=== PATIENT | female | born 1960 ===

== ENCOUNTER 2025-04-19 12:31 | Emergency (ER) | payer MEDICARE, OTHER, SELFPAY ==
--- NOTE | ~2025-04-19 | CT_ITS ---
CLINICAL HISTORY: SOB, concern for clot CTA chest with 3-D postprocessing Comparison: None available Findings: Study quality is adequate for the diagnosis of pulmonary embolism. No pulmonary embolism. Heart size within normal limits. RV/LV ratio is normal. Mild calcified coronary artery disease. No aortic dissection or aneurysm. Mild calcified atherosclerotic disease. No lymphadenopathy. There is a mild amount of ground-glass/patchy consolidation in the lower lobes at the lung bases, greater on the right. No pneumothorax or pleural effusion. No acute osseous or soft tissue abnormality. No acute pathology in the imaged portion of the upper abdomen. The gallbladder is filled with stones. No definitive gallbladder wall thickening. No pericholecystic fluid. Moderate multifocal right renal scarring. Small hiatal hernia. Impression: No pulmonary embolism. Mild amount of ground-glass/patchy consolidation in the lower lobes at the lung bases, greater on the right, may pneumonia. Cholelithiasis without CT evidence of acute cholecystitis. This document has been electronically signed by: Mayuri Silvestre MD on 04/19/2025 16:12:46
[2025-04-19 12:36] VITALS: BP 159/84; PULSE 71; RESP 16; TEMP 36.9; O2SAT 99; BMI 19.6
--- NOTE | 2025-04-19 12:36 | ED.GENADULT ---
HPI - General Adult General Chief complaint: Dyspnea Stated complaint: high bp Time Seen by Provider: 04/19/25 12:46 Source: patient Mode of arrival: ambulatory Limitations: no limitations History of Present Illness ED Provider: Morena Myrick PA-C HPI narrative: Patient is a 64 year old assigned female at with a history of caregiver stress, GERD, hemorrhoids, HLD, insomnia, depression, anxiety, and mood disorder presenting to the emergency department today with feeling shortness of breath. Patient states that since March 31 she has felt shortness of breath and has been seen by her PCP and in the [facility] ER but continues to have the problem. Patient states that she is very stressed out taking care of her at home who is terminally ill and a chronic gambler. Patient states that she is having some central chest pain with this shortness of breath. Patient denies any dizziness, lightheadedness, abdominal pain, nausea, vomiting, fever, chills, blurry vision, double vision, loss of vision, back pain, night sweats, pain with urination, increased urinary frequency, increased urinary urgency, blood in her urine or stool, syncope or a near syncopal episode, recent trauma or falls, bowel incontinence, bladder incontinence, or any other complaints at this time. Onset (ago): day(s) () Relieving factors: none Exacerbating factors: none Associated symptoms: chest pain and shortness of breath Related Data Allergies Allergy/AdvReac Type Severity Reaction Status Date / Time No Known Allergies (No Known Allergy Verified 04/19/25 12:38 Allergies*) Review of Systems Constitutional: Constitutional: Reports no additional constitutional complaints, Denies chills, Denies fever(s) and Denies night sweats Eyes: Eyes: Reports no additional eye complaints, Denies blurry vision, Denies change in vision, Denies diplopia, Denies eye discharge, Denies loss of vision and Denies eye pain ENT: Denies dizziness Cardiovascular: Cardiovascular: Reports no additional cardiovascular complaints, Reports chest pain, Denies lightheadedness, Denies Loss of Consciousness and Reports dyspnea Respiratory: Respiratory: Reports no additional respiratory complaints and Reports dyspnea Gastrointestinal: Gastrointestinal: Reports no additional gastrointestinal complaints, Denies abdominal pain, Denies melena, Denies hematochezia, Denies change in bowel habits and Denies change in stool character Genitourinary: Genitourinary: Denies hematuria, Denies urinary frequency, Denies dysuria, Denies urinary incontinence, Denies urinary hesitancy and Denies urinary urgency Musculoskeletal: Musculoskeletal: Reports no additional musculoskeletal complaints, Denies numbness and Denies tingling Neurologic: Denies dizziness, Denies loss of vision, Denies numbness and Denies tingling Psychiatric: Psychiatric: Reports no additional psychiatric complaints Endocrine: Endocrine: Reports no additional endocrine complaints Hematologic/Lymphatic: Hematologic/Lymphatic: Reports no additional hematologic/lymphatic complaints Allergic/Immunologic: Allergic/Immunologic: Reports no additional allergic/immunologic complaints ON LICENSE OF [facility] Past Medical History Attestation statement: The following information was validated with the patient. Source: old records reviewed and nursing notes reviewed Social History Social History Smoked in Last 30 Days: No Use of substances other than those prescribed or required for medical reasons: No Advance Directives: No Advance Directives Information Provided: No Do you have a plan to hurt others: No Plan Physical Exam ED Vital Signs: Vital Signs - 24 hr 04/19/25 12:36 04/19/25 15:07 04/19/25 16:52 Temperature 98.5 F 98.0 F 0 F L Pulse Rate 71 79 0 L Respiratory Rate 16 20 0 L Blood Pressure 159/84 H 147/87 H 0/0 L Pulse Oximetry 99 97 0 L Oxygen Delivery Method Room Air Room Air BMI result Body Mass Index 19.6 Const General: cooperative, no acute distress, alert and awake Nutritional Appearance: well nourished Orientation/consciousness: patient oriented x3 [facility] Head: Yes normal to inspection and Yes atraumatic Ears: hearing grossly normal bilaterally and external ears normal General nose exam: Normal external nose present, no nasal discharge noted and no epistaxis Face and sinus: Yes normal facial exam, No abrasion and No laceration Mouth: Normal oral and palatal mucosa present, no drooling and no muffled voice Eyes General: appearance normal, both eyes and all related structures Periorbital: periorbital findings normal Eyelids: Yes eyelids normal Conjunctivae: conjunctivae normal Pupils: Equal, round and reactive pupils present EOM: EOMs intact bilaterally Neck Neck: Yes normal visual inspection, Yes full ROM and Yes no lymphadenopathy Resp Effort & Inspection: normal respiratory effort and able to speak in complete sentences Neuro General: patient oriented x3, moves all extremities and CN's II-XI intact bilaterally Cranial nerves: Yes Equal, round and reactive pupils present Cognition (Neuro): normal cognition Extrem General: Yes normal to inspection, Yes full ROM and Yes capillary refill normal Psych Appearance: grossly normal Mental Status: mental status grossly normal Affect: Anxious affect present Attitude: cooperative Thought process: Normal thought process present Thought content: Normal thought content present Insight: Good insight present (Psych) Course Course Course Narrative: 04/19/25 1236 BERTRAM Cisneros This is a Rapid Medical Examination (RME) performed by Bassam Calix PA-C in triage. Full HPI, ROS, assessment and treatment plan per primary provider in the Main ED. Hx: 64 yo F hx of asthma here for eval of I cant breath since March 31. reports waking up with difficulty breathing, has continued since. reports 07/31 chest pain. reports unintentional weight loss. states her is currently passing away at their home. states this isn't stress . PE/vitals: anxious appearing Plan: labs, ekg, cxr Medications Administered Discontinued Medications Generic Name Dose Route Start Last Admin Trade Name Freq PRN Reason Stop Dose Admin Iohexol 100 ml 04/19/25 14:29 04/19/25 14:29 Iohexol 350 Mg/Ml 100 Ml Infus..Btl IV 04/19/25 14:30 65 ml ONCE ONE Administration Medical Decision Making Medical Decision Making [facility] Narrative: Patient is a 64 year old assigned female at with a history of caregiver stress, GERD, hemorrhoids, HLD, insomnia, depression, anxiety, and mood disorder presenting to the emergency department today with feeling shortness of breath. Patient's physical exam showed an anxious individual but was otherwise unremarkable. Patient's blood work was unremarkable. Patient's EKG was unremarkable. Patient's CT PE study showed no pulmonary embolus but did show a mild amount of ground-glass / patchy consolidation in the lower lobes at the lung bases which the radiologist speculates may be pneumonia as well as cholelithiasis without evidence of cholecystitis. Patient is afebrile, no chills, no hypoxia, and a normal WBC count - my suspicion for pneumonia is very low. Patient signed out of the department against medical advice, before the CT results. Patient cited her reason for leaving the department as a strong smell of vanilla is triggering my breathing issues worse . We moved the patient away from the source of the smell but the patient was adamant that the smell persisted and she would rather go than stay and continue to be exposed to it. We offered to move the patient again and she declined, requesting to sign out against medical advice. Given my low suspicion for what the radiologist is speculating, I will not initiate treatment at this time but will fax this note and the results in their entirety to the patient's primary care provider at [facility] (FRANCY Mane at [facility] [phone]). At time of signing out of the hospital against medical advice, the patient was alert, oriented, and able to make her own decisions. Differential Diagnosis Differential Diagnoses: The differential diagnosis associated with the presentation includes Shortness of breath Anxiety Admission/Observation Consideration of admission/observation: Escalation of care including admission/observation considered Patient would have been admitted to the hospital had her work up had any findings where hospital admission was appropriate, her clinical presentation warranted hospital admission, and she hadn't left the department against medical advice. Lab Data [facility] Lab Attestation statement: I reviewed the patient's lab results. My interpretation of these results are in the MDM Rationale portion of this note. 04/19/25 12:51 04/19/25 12:51 Labs: Lab Results 04/19/25 04/19/25 Range/Units 12:50 12:51 WBC 5.2 (4.8-10.8) X10*3/uL RBC 5.17 (4.20-5.50) X10*6/uL Hgb 15.0 (12.0-16.0) g/dl Hct 42.8 (37.0-47.0) % MCV 82.8 (80.0-98.0) fL MCH 29.0 (27.0-33.0) pg MCHC 35.0 (31.0-35.0) g/dl RDW 12.9 (11.0-16.0) % Plt Count 349 (160-400) X10*3/uL MPV 9.9 (9.4-12.3) fL Immature Gran % (Auto) 0.2 (0.0-0.4) % Neut % (Auto) 56.1 (45-73) % Lymph % (Auto) 30.8 (20-40) % [place] % (Auto) 11.7 H (2-11) % Eos % (Auto) 0.6 (0-4) % Baso % (Auto) 0.6 (0-2) % Lymph # (Auto) 1.6 (1.2-4.9) X10*3/uL [place] # (Auto) 0.6 (0.1-1.2) X10*3/uL Eos # (Auto) 0.0 (0.0-0.4) X10*3/uL Baso # (Auto) 0.0 (0.0-0.2) X10*3/uL Abs Immat Gran (auto) 0.01 (0.00-0.03) X10*3/uL Absolute Neuts (auto) 2.9 (2.0-8.3) x10*3/uL Absolute Nucleated RBC 0.000 (0.0-0.012) X10*3/uL Nucleated RBC % (auto) 0.0 (0.0-0.2) /100WBC Sodium 139 (135-145) mmol/L Potassium 4.2 (3.3-5.1) mmol/L Chloride 110 H (96-108) mmol/L Carbon Dioxide 17 L (22-29) mmol/L Anion Gap 16 (12-20) BUN 10 (9-16) mg/dL Creatinine 0.91 (0.5-1.4) mg/dL Estim Creat Clear Calc 48.3 Estimated GFR > 60 Random Glucose 92 (60-115) mg/dL Calcium 9.0 (8.4-10.2) mg/dL Magnesium 2.4 (1.6-2.6) mg/dL Total Bilirubin 0.5 (0.0-1.0) mg/dL AST 30 (5-31) U/L ALT 20 (0-31) U/L Alkaline Phosphatase 64 (39-117) U/L Troponin I High Sens < 2.7 (<3.5-17.0) ng/L Total Protein 7.1 (6.5-8.0) g/dL Albumin 4.3 (3.5-5.0) g/dL TSH 1.43 (0.32-4.0) uIU/mL Influenza Type A (PCR) NEGATIVE (Negative) Influenza Type B (PCR) NEGATIVE (Negative) RSV RNA Qual (PCR) NEGATIVE (Negative) SARS-CoV-2 RNA (RT-PCR) NEGATIVE (Negative) Independent Interpretation I performed an independent interpretation of an: EKG and CT Scan Interpretation: My interpretation is in agreement with the radiologist's impression of this imaging study. Report Number: [id number]: Total DLP = 193.00 mGy-cm CLINICAL HISTORY: SOB, concern for clot CTA chest with 3-D postprocessing Comparison: None available Findings: Study quality is adequate for the diagnosis of pulmonary embolism. No pulmonary embolism. Heart size within normal limits. RV/LV ratio is normal. Mild calcified coronary artery disease. No aortic dissection or aneurysm. Mild calcified atherosclerotic disease. No lymphadenopathy. There is a mild amount of ground-glass/patchy consolidation in the lower lobes at the lung bases, greater on the right. No pneumothorax or pleural effusion. No acute osseous or soft tissue abnormality. No acute pathology in the imaged portion of the upper abdomen. The gallbladder is filled with stones. No definitive gallbladder wall thickening. No pericholecystic fluid. Moderate multifocal right renal scarring. Small hiatal hernia. Impression: No pulmonary embolism. Mild amount of ground-glass/patchy consolidation in the lower lobes at the lung bases, greater on the right, may pneumonia. Cholelithiasis without CT evidence of acute cholecystitis. This document has been electronically signed by: Mayuri Silvestre MD on 04/19/2025 16:12:46 Dictated By: Mayuri Tong MD Signed By: Electronically signed by Mayuri Tong MD 04/19/25 1614 I independently interpreted this EKG and am in agreement with the below findings: Vent. Rate: 64 BPM Atrial Rate: 64 BPM P-R Int: 126 ms QRS Dur: 74 ms QT Int: 440 ms P-R-T Axes: 24 22 42 degrees QTcB Int: 453 ms Normal sinus rhythm Normal ECG No previous ECGs available DD/ 1246 Radiology Impression Discussion of test interpretation with radiology: I have reviewed the radiologist's reading. External Record Review External record reviewed: Office record I reviewed the primary care provider note from 04/17/2025 below: History of Present Illness Staci is a 64-year-old female here for follow-up regarding worsening SOB, stress-related somatic symptoms, and ongoing caregiver burnout. Reports progressive dyspnea with minimal exertion and tightness in chest, worsened by recent dietary sodium intake (soup). Denies wheezing but notes SOB with talking and exertion. She has multiple psychosocial stressors: her is hospitalized (hyponatremia, new walker dependence), and she remains his sole caregiver. She reports exhaustion, insomnia, weight loss, poor appetite, and tearfulness. Pt endorses that her living situation is emotionally unsustainable? continues compulsive gambling, refuses lifestyle change. She has been seeking alternative housing. Adult daughter estranged and unhelpful. Pt feels unsupported and overwhelmed. Current meds include sertraline (was 25 mg, increased today to 50 mg), quetiapine 100 mg QHS (now increased to 150 mg QHS), and alprazolam 1 mg at night. Mirtazapine was prescribed previously but not started?patient was hesitant due to concern for dizziness. Will hold mirtazapine for now. She is drinking fluids, trying to eat well, and using Mucinex PRN but continues to feel short of breath and fatigued. ROS: Constitutional: Fatigue, poor appetite, unintentional weight loss. Respiratory: SOB with exertion, no wheeze or cough today. CV: No CP, no palpitations. GI: No N/V/D. Neuro: No syncope, no falls. Psych: Tearful, depressed mood, sleep disturbance, caregiver stress. : No incontinence. Musculoskeletal: Weakness, no focal pain. Physical Exam Vitals & Measurements HR:?54?(Peripheral)??BP:?106/66??SpO2:?97%? HT:?159.00?cm??WT:?51.7?kg??BMI:?20.45? General: Thin, fatigued-appearing female in no acute distress. Lungs: Clear to auscultation bilaterally, no wheezes/rales/rhonchi. Cardiac: RRR, no murmur. Ext: No edema. Neuro: Non-focal. Mood: Tearful, overwhelmed. Assessment/Plan 1. Shortness of breath Ordered: Follow up appointment Dyspnea / SOB ? Lungs clear on exam, SpO2 WNL, prior CXR and PFTs normal. Stress echo showed above-average cardiac function. Presumed multifactorial dyspnea likely related to deconditioning and anxiety. Referral placed to pulmonology to rule out occult pulmonary pathology. Stable. 2. Mood disorder 3. Caregiver stress Pt unable to continue caring for spouse post-discharge without assistance. Advised she seek support from [employer] in [place] for housing and equipment resources. Encouraged separation planning and prioritizing her own safety. Referred to [facility]?s department for ramp access logistics. Pt advised to decline unsafe caregiving duties (e.g., lifting ). Unstable. 4. Recurrent severe major depressive disorder with anxiety Ordered: Follow up appointment Sertraline, 1 tablet = 50 mg, By Mouth, Daily, # 90 tablet, 0 Refills, Maintenance, 04/16/25 12:20:00 EDT, Tablet, [facility]/pharmacy #[id number], Partial fill upon patient request if the prescription is for a schedule II opioid drug Increased sertraline to 50 mg QHS (was 25 mg AM); pt will switch to PM dosing for consistency. Increased Seroquel from 100 mg to 150 mg QHS. Will hold off on mirtazapine. Continued alprazolam 1 mg QHS. Pt reports minimal benefit from current psych meds but is engaged in self-care efforts. F/u with Colette Grider (therapy) scheduled for 04/28. Unstable. Nutrition / Weight Loss ? Pt eating irregularly due to stress and SOB. Encouraged balanced meals and trial of mirtazapine if weight loss worsens. Continue hydration. Stable but needs monitoring. Bety Mane RN, FORENSIC ANTHROPOLOGIST-C Family Nurse Practitioner [facility] [address], [address], [place], [place]? [address] p: [phone] ? Discharge Plan Discharge Clinical Impression: Breath shortness, Anxiety Patient Disposition: Left Against Medical Advice Additional Instructions: You have requested to leave against medical advice while your CT PE results are pending. I recommend you remain in the hospital until your results have come back and we have confirmed the presence or not of a pulmonary embolism (blood clot in your lung). You have declined to do this. If you change your mind, please call 911 or proceed directly to your nearest emergency department. Stand Alone Forms: Against Medical Advice Interventions: ED Discharge Assessment Last Done: 04/19/25 16:52 Discharge Date/Time: 04/19/25 16:53 Print Language: Kyrgyz
--- NOTE | 2025-04-19 12:40 | ECG_ITS ---
Test Reason : cp Blood Pressure : */* mmHG Vent. Rate : 64 BPM Atrial Rate : 64 BPM P-R Int : 126 ms QRS Dur : 74 ms QT Int : 440 ms P-R-T Axes : 24 22 42 degrees QTcB Int : 453 ms Normal sinus rhythm Normal ECG No previous ECGs available Referred By: Maribell Calix Electronically Signed By: SAKSHI GRAY MD
[2025-04-19 12:55] LABS: MANUAL DIFF FLAG NO
[2025-04-19 13:01] LABS: Basophils Percent Auto 0.6 % (0-2); Eosinophils Percent Auto 0.6 % (0-4); Hematocrit 42.8 % (37.0-47.0); Imm Gran Abs Auto 0.01 X10*3/uL (0.00-0.03); Imm Gran Pct Auto 0.2 % (0.0-0.4); Lymphocytes Absolute Auto 1.6 X10*3/uL (1.2-4.9); Lymphocytes Percent Auto 30.8 % (20-40); Mean Corpuscular Volume 82.8 fL (80.0-98.0); Mean Platelet Volume 9.9 fL (9.4-12.3); Monocytes Absolute Auto 0.6 X10*3/uL (0.1-1.2); Monocytes Percent Auto 11.7 % (2-11); Neutrophils Absolute Auto 2.9 x10*3/uL (2.0-8.3); Neutrophils Percent Auto 56.1 % (45-73); Platelet Count 349 X10*3/uL (160-400); Red Blood Count 5.17 X10*6/uL (4.20-5.50); Red Cell Distribution Width 12.9 % (11.0-16.0); White Blood Count 5.2 X10*3/uL (4.8-10.8)
[2025-04-19 13:11] LABS: Alanine Aminotransferase 20 U/L (0-31); Albumin Level 4.3 g/dL (3.5-5.0); Alkaline Phosphatase 64 U/L (39-117); Anion Gap 16 (12-20); Aspartate Amino Transferase 30 U/L (5-31); Bilirubin Total 0.5 mg/dL (0.0-1.0); Blood Urea Nitrogen 10 mg/dL (9-16); Carbon Dioxide 17 mmol/L (22-29); Chloride 110 mmol/L (96-108); Creatinine Clr Calc Pharmacy 48.3; Estimated Glomerular Filt Rate > 60; Glucose Random 92 mg/dL (60-115); Magnesium 2.4 mg/dL (1.6-2.6); Potassium 4.2 mmol/L (3.3-5.1); Sodium 139 mmol/L (135-145); Total Protein 7.1 g/dL (6.5-8.0)
[2025-04-19 13:20] LABS: Troponin-I High Sensitivity < 2.7 ng/L (<3.5-17.0)
[2025-04-19 13:36] LABS: Influenza A PCR NEGATIVE (Negative); Influenza B PCR NEGATIVE (Negative); Resp Syncy Virus RNA Qual PCR NEGATIVE (Negative); SARS COV2 PCR INHOUSE NEGATIVE (Negative)
[2025-04-19] MEDS: iohexoL 350 MG/ML 100 ML INFUS..BTL IV (14:29)
[2025-04-19 14:38] LABS: TSH reflex Free T4 1.43 uIU/mL (0.32-4.0)
[2025-04-19 15:07] VITALS: BP 147/87; PULSE 79; RESP 20; TEMP 36.7; O2SAT 97
--- NOTE | 2025-04-19 16:08 | PC.NURSE ---
Pt left AMA- verbal AMA done with Morena BURDEN. IV line removed pior to patient leaving. Pt aware of risks of leaving AMA
[2025-04-19 16:52] VITALS: BP 0/0; PULSE 0; RESP 0; TEMP -17.7; TEMP 0; O2SAT 0
== END 2025-04-19 16:53 | disposition left against medical advice (07) ==
PROVIDERS: Physician Assistant Medical; Emergency Provider Emergency Medicine; PCP Nurse Practitioner Family
DX: R06.02 Shortness of breath (principal); F41.9 Anxiety disorder, unspecified; R07.9 Chest pain, unspecified; Z03.818 Encounter for observation for suspected exposure to other biological agents ruled out
CPT/HCPCS: 0241U; 36415; 71275; 80053; 83735; 84443; 84484; 85025; 93005; 99284; 99285; Q9967

== ENCOUNTER → 2025-04-19 12:40 | Outpatient (BNV) | payer MEDICARE, OTHER, SELFPAY | PROVIDERS: Emergency Provider Emergency Medicine; PCP Nurse Practitioner Family; Visit Provider Internal Medicine Cardiovascular Disease | DX: R07.9 Chest pain, unspecified (principal) | CPT/HCPCS: 93010 ==

== ENCOUNTER → 2025-04-19 13:00 | Outpatient (BNV) | payer MEDICARE, OTHER, SELFPAY | PROVIDERS: Emergency Provider Emergency Medicine; PCP Nurse Practitioner Family; Visit Provider Radiology Diagnostic Radiology | DX: R06.02 Shortness of breath (principal) | CPT/HCPCS: 71275 ==